=== PATIENT | male | born 1960 | race Caucasian/White ===

== ENCOUNTER 2020-08-27 08:52 | Emergency (ER) | payer MEDICARE ==
--- NOTE | 2020-08-27 09:20 | RAD ---
Frontal, lateral, and oblique views of the right hand. Indication: index finger pain Comparison: None Impression: A metal foreign body noted within the distal aspect of the second digit. It directly abuts the second distal phalanx at the distal shaft. Intraosseous involvement difficult to exclude given large field of view imaging. CT of the second digit could better evaluate as clinically indicated. Electronically signed by: Tonny Lux MD 08/27/2020 9:18 AM [facility]
[2020-08-27] MEDS ORDERED: LIDOCAINE 1% 10 ML VIAL INJ ONE (09:38)
--- NOTE | 2020-08-27 09:51 | ED.PDOC ---
History of Present Illness - General Chief Complaint: Upper Extremity Injury Stated Complaint: nail thru right index finger Time Seen by Provider: 08/27/20 09:04 Source: patient, RN notes reviewed, Vital Signs reviewed Exam Limitations: no limitations - History of Present Illness Initial Comments: Patient is a 59-year-old white male who was at work using a pneumatic nail gun and had a nail strike his right index finger at the distal aspect. Patient complains of mild pain in that finger. There is no radiation of the pain. It is stabbing in nature. It is constant. The pain is worse with movement or palpation. Rest and elevation make the pain better. Patient is up-to-date on his tetanus as he had one 2 months ago when he cut his finger. Occurred: just prior to arrival Severity: mild Pain Location: upper extremity - right distal index finger Method of Injury: direct blow Improving Factors: rest Worsening Factors: movement Loss of Consciousness: no loss of consciousness Associated Symptoms (Fall): denies symptoms Allergies/Adverse Reactions: Allergies NO KNOWN ALLERGY Allergy (Verified 08/27/20 09:05) Home Medications: Ambulatory Orders Acetaminophen W/ Codeine [Tylenol W/ CODEINE #3] 1 tab PO Q6H #12 tab 08/27/20 Amoxicillin & Pot Clavulanate [Augmentin Tab] 875 mg PO BID #14 tab 08/27/20 Review of Systems - Review of Systems Constitutional: States: no symptoms reported. Denies: chills, fever, malaise, weakness EENTM: States: no symptoms reported. Denies: eye pain, blurred vision, double vision Respiratory: States: no symptoms reported. Denies: cough, short of breath, st ridor Cardiology: States: no symptoms reported. Denies: chest pain, edema, palpitations Gastrointestinal/Abdominal: States: no symptoms reported. Denies: abdominal pain, constipation, diarrhea, nausea, vomiting Genitourinary: States: no symptoms reported. Denies: dysuria, frequency Musculoskeletal: States: see HPI, joint pain Skin: States: no symptoms reported. Denies: change in color, rash Neurological: States: no symptoms reported. Denies: tingling, tremors, weakness Endocrine: States: no symptoms reported. Denies: increased hunger, increased thirst, increased urine Hematologic/Lymphatic: States: no symptoms reported. Denies: blood clots, easy bleeding All other Systems: Reviewed and Negative Past Medical History (General) - Patient Medical History Hx of COPD: Yes Hx Cardiac Disorders: Yes Hx Congestive Heart Failure: No Hx Hypertension: Yes Hx Cancer: No Hx Hepatitis C: No Surgical History: appendectomy - Vaccination History Hx Tetanus, Diphtheria Vaccination: Yes Hx Influenza Vaccination: No Hx Pneumococcal Vaccination: No Immunizations Up to Date: No - Social History Hx Tobacco Use: Yes Hx Alcohol Use: Yes - occ Hx Substance Use: No Hx Substance Use Treatment: No Hx Depression: No Family Medical History - Family History Mother Family History: Unknown Living Status: Physical Exam - Physical Exam General Appearance: Alert, Anxious, Obvious distress, Well Developed, Well Groomed, Well Hydrated, Well Nourished Head Injury: no evidence of injury, active bleeding Eye Exam: bilateral normal ENT Exam: hearing grossly normal, no dental injury Neck Exam: non-tender, full range of motion, normal alignment Cardiovascular/Respiratory: regular rate, rhythm, no M/R/G, normal peripheral pulses Gastrointestinal/Abdominal: normal bowel sounds, non tender, no organomegaly Back Exam: normal inspection, no CVA tenderness, no vertebral tenderness Extremity Exam: other - nail into right index finger. Nail extends from the distal pad (volar) thru the finger, exiting on the dorsal finger at the nail matrix. Neurologic: conference reservationist II-XII nml as tested, no motor/sensory deficits, alert, normal mood/affect, oriented x 3 Skin Exam: normal color, warm/dry - Jesusita Coma Score Best Eye Response (Jesusita): (4) open spontaneously Best Verbal Response (Jesusita): (5) oriented Best Motor Response ([place]): (6) obeys commands Jesusita Total: 15 Progress - Progress Progress: Differential diagnosis: Foreign body in finger, finger fracture, cellulitis, tetanus prophylaxis among others. 08/27/20 10:36 Patient tolerated the digital block without any difficulty and tolerated the extraction of the foreign body. Patient's finger was placed in a splint. Patient was given Rocephin IM and given a prescription for Augmentin to start immediately upon discharge. I discussed this patient with Dr. Jain and he wants to see him in follow-up in about 1 week. I discussed this plan of care with the patient and he voices understanding and agreement with following up with his PCP for referral to Dr. Jain. Wilder Zurita M.D. #[id number] - Results/Orders Results/Orders: Frontal, lateral, and oblique views of the right hand. Indication: index finger pain Comparison: None Impression: A metal foreign body noted within the distal aspect of the second digit. It directly abuts the second distal phalanx at the distal shaft. Intraosseous involvement difficult to exclude given large field of view imaging. CT of the second digit could better evaluate as clinically indicated. Electronically signed by: Tonny Lux MD 08/27/2020 9:18 AM Procedures - Foreign Body Removal Foreign Body Removal: other - staple - Additional Procedures Progress: Procedure: Digital block Indication: Analgesia to finger for foreign body removal Note: After explaining the procedure to the patient including the digital block and foreign body removal patient consented to the procedure. The right index finger was cleansed with Betadine at the base circumferentially. The swabs were done x3 with drying between the swabs. A 27-gauge needle was used to infused a ring block to the right index finger proximally. Approximately 6 mL of 1% lidocaine without epi were infused. I obtained good analgesia and there were no complications to this procedure. The foreign body was removed without difficulty. Patient tolerated the procedure well. There were no complications. Departure - Departure Clinical Impression: Foreign body of finger of right hand Qualifiers: Encounter type: initial encounter Qualified Code(s): S60.459A - Superficial foreign body of unspecified finger, initial encounter Fracture, finger, distal phalanx, open Qualifiers: Encounter type: initial encounter Finger: index finger Fracture alignment: nondisplaced Laterality: right Qualified Code(s): S62.660B - Nondisplaced fracture of distal phalanx of right index finger, initial encounter for open fracture Time of Disposition: 10:57 Disposition: Discharge to Home or Self Care Condition: Good Departure Forms: ED Discharge - Pt. Copy, Patient Portal Self Enrollment Instructions: DI for Arm Pain, Foreign Body in Skin (DC), Finger Fracture (DC) Diet: resume usual diet Activity: no pushing/pulling with affected limb Referrals: Jenifer Rogers [facility]ER [Primary Care Provider] - 1-2 Days (for referral to orthopedics ) Prescriptions: Amoxicillin & Pot Clavulanate [Augmentin Tab] 875 mg PO BID #14 tab Acetaminophen W/ Codeine [Tylenol W/ CODEINE #3] 1 tab PO Q6H #12 tab Home Medications: Ambulatory Orders Acetaminophen W/ Codeine [Tylenol W/ CODEINE #3] 1 tab PO Q6H #12 tab 08/27/20 Amoxicillin & Pot Clavulanate [Augmentin Tab] 875 mg PO BID #14 tab 08/27/20 Comments: Pt to obtain referral from pcp for follow up with Dr. Jain. Pt is aware of the need for referral and f/u.
[2020-08-27] MEDS ORDERED: cefTRIAXone SODIUM 1 GM VIAL ONE (10:28)
[2020-08-27] MEDS ORDERED: LIDOCAINE 1% 2 ML VIAL INJ ONE (10:28)
[2020-08-27] MEDS ORDERED: cefTRIAXone SODIUM 1 GM VIAL IM ONE (10:32)
[2020-08-27 11:06] VITALS: BP 168/78; TEMP 98.7; O2SAT 98
== END 2020-08-27 11:05 | disposition home or self-care (01) ==
LOC: ER 08:52
DX: S62.630B Displaced fracture of distal phalanx of right index finger, initial encounter for open fracture (principal); S61.340A Puncture wound with foreign body of right index finger with damage to nail, initial encounter; I10 Essential (primary) hypertension; I51.9 Heart disease, unspecified; J44.9 Chronic obstructive pulmonary disease, unspecified; W29.4XXA Contact with nail gun, initial encounter; Y99.0 Civilian activity done for income or pay; Y92.9 Unspecified place or not applicable; Z87.891 Personal history of nicotine dependence
CPT/HCPCS: 73130; J0696